=== PATIENT | male | born 1960 | race Caucasian/White ===

== ENCOUNTER 2023-10-05 03:31 | Observation (INO) | payer MEDICARE, OTHER ==
[2023-10-05] VITALS (14 sets, daily range): BP systolic 113–149; BP diastolic 72–103; PULSE 69–84; TEMP 94–98.9
[~2023-10-05] VITALS: Ht 172.7 cm; Wt 98.7 kg
[2023-10-05] MEDS ORDERED: NS 1,000 ML IV SCH (04:30)
[2023-10-05] MEDS ORDERED: Ondansetron 4 MG/2 ML VIAL IV PRN ×2 (04:30→09:00)
[2023-10-05] MEDS ORDERED: HYDROmorphone 0.5 MG/0.5 ML SYRINGE IV PRN (04:30)
--- NOTE | 2023-10-05 06:30 | NUR ---
PT ARRIVED TO THE MEDICAL FLOOR AT 0500HRS TO ROOM 316. PT A&O X 4; VSS; O2 RA. PT DENIES GENERAL PAIN, CHEST PAIN, PALPITATIONS, SOB, N,V,D OR DIZZINESS AT THIS TIME. ADMISSIONS ASSESSMENT COMPLETE. PT TAKES NO HOME MEDS. PT ORIENTED TO ROOM AND HOSPITAL POLICY. POC DISCUSSED WITH PT AND . PT VERBALIZED UNDERSTANDING. ALL QUESTIONS AND CONCERNS ADDRESSED. PT INDEPENDANT IN ROOM. PT EXPRESSED NO ADDITIONAL NEEDS AT THIS TIME. CALL LIGHT WITHIN REACH.
[2023-10-05] MEDS ORDERED: Rocuronium 50 MG/5 ML Multi-Dose VIAL ONE ×2 (08:39→09:58)
[2023-10-05] MEDS ORDERED: Succinylcholine PF 100 MG/5 ML SYRINGE/POLY AMP IV ONE (08:40)
[2023-10-05] MEDS ORDERED: fentaNYL 50 MCG/ML 2 ML VIAL ONE ×3 (08:40→09:59)
[2023-10-05] MEDS ORDERED: dexAMETHasone 10 MG/ML VIAL ONE (08:40)
[2023-10-05] MEDS ORDERED: NS 10 ML IV ONE (08:40)
[2023-10-05] MEDS ORDERED: Ondansetron 4 MG/2 ML VIAL ONE (08:40)
[2023-10-05 09:00] LABS: BASO % 0.4 % (0.0-2.0); EOS % 0.1 % (0.0-4.0); GRAN # 6.1 K/mm3 (1.4-6.5); GRAN % 77.7 % (42.2-75.2); HEMATOCRIT 47.5 % (42.0-52.0); HEMOGLOBIN 16.2 g/dl (13.5-18.0); LYMPH # 0.9 K/mm3 (1.2-3.4); LYMPH % 11.5 % (20.0-51.0); MEAN CELL VOLUME 87 fl (80.0-100.0); MEAN CORPUSCULAR HEMOGLOBIN 30 pg (27-31); MEAN CORPUSCULAR HGB CONC 34 g/dl (33.0-37.0); MEAN PLATELET VOLUME 10.3 fl (7.4-10.4); MONO # 0.8 K/mm3 (0.1-0.6); PLATELET COUNT 240 K/mm3 (130-400); RED BLOOD COUNT 5.49 M/mm3 (4.20-5.60); REDCELL DISTRIBUTION WIDTH-CV 13.4 % (11.5-14.5)
[2023-10-05] MEDS ORDERED: LR 1,000 ML IV SCH (09:00)
[2023-10-05] MEDS ORDERED: Pantoprazole 40 MG in NS 10 ML IV SCH (09:00)
[2023-10-05] MEDS ORDERED: droPERidol 2.5 MG/ML 2 ML VIAL IV PRN (09:00)
[2023-10-05] MEDS ORDERED: hydrALAZINE 20 MG/ML 1 ML VIAL IV PRN (09:00)
[2023-10-05] MEDS ORDERED: HYDROmorphone 2 MG/1 ML VIAL IV PRN (09:00)
[2023-10-05] MEDS ORDERED: fentaNYL 50 MCG/ML 2 ML VIAL IV PRN ×2 (09:00)
[2023-10-05 09:26] LABS: ALBUMIN 3.9 gm/dL (3.4-4.8); BILIRUBIN,TOTAL 3.2 mg/dL (0.2-1.2); CALCIUM 9.9 mg/dL (8.4-10.2); CREATININE, serum 1.2 mg/dL (0.72-1.25); POTASSIUM 4.1 mmol/L (3.5-4.5); TOTAL PROTEIN 7.3 gm/dL (6.2-8.1)
[2023-10-05] MEDS ORDERED: Iohexol 350 - 100 ML VIAL BILE DUCT ONE (09:47)
--- NOTE | 2023-10-05 10:46 | NUR ---
SW informed that patient was at surgery upon approach to complete intake. SW will attempt at another time to complete.
[2023-10-06] VITALS: BP_SYST 113
[2023-10-06 02:45] VITALS: BP 136/85; PULSE 80; TEMP 98.1
[2023-10-06 04:00] VITALS: BP_SYST 136
[2023-10-06 07:00] VITALS: BP 133/79; PULSE 62; TEMP 97.7
[2023-10-06 07:16] LABS: ALBUMIN 3.3 gm/dL (3.4-4.8); BILIRUBIN,TOTAL 1.6 mg/dL (0.2-1.2); CALCIUM 9.2 mg/dL (8.4-10.2); CREATININE, serum 1.09 mg/dL (0.72-1.25); TOTAL PROTEIN 6.3 gm/dL (6.2-8.1)
[2023-10-06 09:00] VITALS: BP_SYST 133
--- NOTE | 2023-10-06 10:28 | NUR ---
Initial visit; Patient and his were from the same community as [employer] so that had a lot to talk about. Patient doing well and plans to be discharged and thanked [employer] for offering God's blessings and safe travels.
--- NOTE | 2023-10-06 11:16 | NUR ---
patient alert and oriented x4. pain rating at a 1. does not want anything for pain. at bedside. discharge instructions given. iv removed. instructed to call when they were ready to go out of unit. call light within reach.
--- NOTE | 2023-10-06 12:00 | NUR ---
PATIENT ESCORTED OUT OF UNIT BY [facility]IA [facility] EMERGENC[facility] DEPARTMENT STAFF AFTER RT GAVE SPIROMETER TO PATIENT.
== END 2023-10-06 12:05 | disposition home or self-care (01) ==
LOC: SURG 03:31 → MEDICAL 04:55
PROVIDERS: Internal Medicine; Nurse Practitioner Family; ADMIT Internal Medicine
DX: K80.00 Calculus of gallbladder with acute cholecystitis without obstruction (principal); R65.10 Systemic inflammatory response syndrome (SIRS) of non-infectious origin without acute organ dysfunction; K83.8 Other specified diseases of biliary tract
CPT/HCPCS: A9284; C9113; G0378; J0330; J0690; J1100; J1170; J2405; J2543; J2704; J3010; J7030; Q9967